=== PATIENT | female | born 1975 | race Caucasian/White ===

== ENCOUNTER 2016-09-06 19:50 | Observation (INO) | payer OTHER ==
[2016-09-06 20:24] VITALS: BP 127/86; PULSE 82; RESP 16; TEMP 98.2; O2SAT 99
[2016-09-06] MEDS ORDERED: Sodium Chloride 0.9% 1,000 ML IV STA (21:57)
--- NOTE | 2016-09-06 22:07 | ED PDOC ---
HPI: Abdomen Time Seen by Provider: 09/06/16 21:22 Chief Complaint (Nursing): Abdominal Pain Chief Complaint (Provider): Lower abdominal pain History Per: Patient History/Exam Limitations: no limitations Onset/Duration Of Symptoms: Days (1) Outside of [place] travel?: No Current Symptoms Are (Timing): Still Present Location Of Pain/Discomfort: Suprapubic Quality Of Discomfort: "Pain" Additional Complaint(s): The patient is a 41yo female, no pertinent past medical history, presents to the ED for evaluation of low abdominal pain with associated vaginal bleeding described as bright red blood with clots. Patient reports she has changed her pads "more times than she can count." She reports her presentation is unusual because her periods are regular. Patient also reports an episode of nausea, vomiting, diarrhea today with resolution of vomiting and diarrhea. Patient denies any lightheadedness, dizziness, fever, chills and offers no additional medical complaints. Abnormal Vaginal Bleeding: Yes Past Medical History Reviewed: Historical Data, Nursing Documentation, Vital Signs Vital Signs: Last Vital Signs Temp 98.2 F 09/06/16 20:21 Pulse 82 09/06/16 20:21 Resp 16 09/06/16 20:21 BP 127/86 09/06/16 20:21 Pulse Ox 99 09/07/16 01:34 - Medical History PMH: Anemia - Surgical History Surgical History: No Surg Hx - Family History Family History: States: No Known Family Hx, Unknown Family Hx - Home Medications Home Medications: Ambulatory Orders Medication Instructions Recorded Ferrous Sulfate 325 mg PO DAILY #14 tablet 09/07/16 Ketorolac Tromethamine [Toradol] 10 mg PO Q6 #30 tab 09/07/16 medroxyPROGESTERONEone Acetate 5 mg PO DAILY #5 tab 09/07/16 [Provera] - Allergies Allergies/Adverse Reactions: Allergies Allergy/AdvReac Type Severity Reaction Status Date / Time No Known Allergies Allergy Verified 05/20/14 01:27 Review of Systems ROS Statement: Except As Marked, All Systems Reviewed And Found Negative Constitutional: Negative for: Fever, Chills Cardiovascular: Negative for: Light Headedness Gastrointestinal: Positive for: Nausea, Abdominal Pain (lower abdominal pain) Genitourinary Female: Positive for: Vaginal Bleeding Neurological: Negative for: Dizziness Physical Exam - Reviewed Nursing Documentation Reviewed: Yes Vital Signs Reviewed: Yes - Physical Exam Appears: Positive for: Well, Non-toxic, No Acute Distress Head Exam: Positive for: ATRAUMATIC, NORMAL INSPECTION, NORMOCEPHALIC Skin: Positive for: Normal Color, Warm, DRY Eye Exam: Positive for: Normal appearance Neck: Positive for: Normal, Supple Cardiovascular/Chest: Positive for: Regular Rate, Rhythm Respiratory: Positive for: Normal Breath Sounds. Negative for: Respiratory Distress Gastrointestinal/Abdominal: Positive for: Soft, Tenderness (lower abdomen tenderness) Pelvic Exam: Positive for: Blood (mild pooling of blood around cervix), Other ( Compliance Aide: Makenzie العراقي RN). Negative for: Tender W/Cervical Motion Back: Positive for: Normal Inspection Extremity: Positive for: Normal ROM. Negative for: Deformity, Swelling Neurologic/Psych: Positive for: Alert, Oriented - Laboratory Results Result Diagrams: 09/06/16 23:55 09/06/16 22:14 - ECG O2 Sat by Pulse Oximetry: 99 (RA) Pulse Ox Interpretation: Normal Medical Decision Making Medical Decision Making: Time: 2129 Impression: Dysfunctional uterine bleeding Plan: -- Labs -- Toradol 15mg IVP -- IV Fluids -- Zofran 4mg IVP -- US Transvaginal Reassess Scribe Attestation: Documented by April Cleaning acting as a scribe for Reji Medina MD. Provider Attestation: All medical record entries made by the Scribe were at my direction and personally dictated by me. I have reviewed the chart and agree that the record accurately reflects my personal performance of the history, physical exam, medical decision making, and the department course for this patient. I have also personally directed, reviewed, and agree with the discharge instructions and disposition. ED OBSERVATION Date of observation admission: 09/06/16 Time of observation admission: 21:58 - Observation admission statement Patient is being placed in observation because:: Pending CT - Goals of Observation Goals of observation are:: CT results and final disposition - Progress Note Progress Note: 09/06/16 23:40 US TRANSVAGINAL FINDINGS Uterus/cervix: Uterus measures 10.8 x 7.2 x 8.2 cm in size. 6.7 x 5.5 x 7.5 cm uterine mass. Endometrium: 1.9 cm in thickness. Right ovary: 2.4 x 2.0 x 2.1 cm in size. No mass. Small follicles. Normal flow. Left ovary: 2.3 x 1.6 x 2.0 cm in size. No mass. Small follicles. Normal flow. Free fluid: No significant free fluid. Bladder: Unremarkable as visualized. IMPRESSION: 1. Probable fibroid. 2. Thickened endometrium. Clinical correlation is needed. 3. Incidental/non-acute findings are described above. 09/07/16 01:31 Upon re-evaluation, patient is feeling better and is medically stable to be discharged home. Discussed case with Dr. Bernard, who notes that patient will most likely need an endometrial biopsy and iron. Patient can take Provera, but resulting caveat is that it may change the results of the endometrial biopsy. Spoke with patient regarding results, and she is aware that she must see her ACCESS DIRECTOR tomorrow and is aware of the effect Provera may have on the biopsy. Return precautions given. Disposition - Clinical Impression Clinical Impression: Fibroid, Thickened endometrium, Vaginal bleeding - Disposition Disposition: Routine/Home Disposition Time: 21:58 Condition: FAIR - Pt Status Changed To: Hospital Disposition Of: Observation
[2016-09-06 22:17] LABS: BASO # 0.1 K/uL (0.0-0.2); BASO % 1.2 % (0.0-2.0); EOS # 0.1 K/uL (0.0-0.7); EOS % 1.3 % (0.0-4.0); HEMOGLOBIN 10.4 g/dL (12.0-16.0); LYMPH # 1.5 K/uL (1.0-4.3); LYMPH % 29.5 % (20.0-40.0); MEAN CELL VOLUME 83.5 fl (81.0-99.0); MEAN CORPUSCULAR HEMOGLOBIN 26.5 pg (27.0-31.0); MEAN CORPUSCULAR HGB CONC 31.8 g/dL (33.0-37.0); MEAN PLATELET VOLUME 7.4 fl (7.2-11.7); MONO # 0.4 K/uL (0.0-0.8); MONO % 8.3 % (0.0-10.0); NEUT % 59.7 % (50.0-75.0); RBC 3.93 Mil/uL (3.80-5.20); RED CELL DISTRIBUTION WIDTH 15.4 % (11.5-14.5)
[2016-09-06 22:25] LABS: ALB/GLOB RATIO 1.4 (1.0-2.1); ALBUMIN 4.2 g/dL (3.5-5.0); ALT/SGPT 33 U/L (9-52); AST/SGOT 24 U/L (14-36); BLOOD UREA NITROGEN 15 mg/dl (7-17); CALCIUM 9.1 mg/dL (8.4-10.2); GFR AFRICAN-AMERICAN > 60; GFR NON-AFRICAN AMERICAN > 60
[2016-09-06 22:30] LABS: URINE BACTERIA MOD (<OCC); URINE BILIRUBIN NEGATIVE (NEGATIVE); URINE BLOOD LARGE (NEGATIVE); URINE CLARITY CLOUDY (Clear); URINE GLUCOSE (UA) NEG (Normal); URINE LEUKOCYTE ESTERASE NEG Leu/uL (Negative); URINE NITRATE NEGATIVE (NEGATIVE); URINE PROTEIN 30 mg/dL (NEGATIVE); URINE UROBILINOGEN 0.2-1.0 mg/dL (0.2-1.0)
[2016-09-06 22:31] LABS: URINE COLOR RED (YELLOW)
--- NOTE | 2016-09-06 23:44 | US ---
EXAM: US Pelvis Complete, Transabdominal CLINICAL HISTORY: 41 years old, female; Signs and symptoms; Menstruation abnormalities; Excessive menstruation; With irregular cycle; Additional info: Vb w/ lower abd pain TECHNIQUE: Real-time transabdominal pelvic ultrasound (complete) with image documentation. COMPARISON: No relevant prior studies available. FINDINGS: Uterus/cervix: Uterus measures 10.8 x 7.2 x 8.2 cm in size. 6.7 x 5.5 x 7.5 cm uterine mass. Endometrium: 1.9 cm in thickness. Right ovary: 2.4 x 2.0 x 2.1 cm in size. No mass. Small follicles. Normal flow. Left ovary: 2.3 x 1.6 x 2.0 cm in size. No mass. Small follicles. Normal flow. Free fluid: No significant free fluid. Bladder: Unremarkable as visualized. IMPRESSION: 1. Probable fibroid. 2. Thickened endometrium. Clinical correlation is needed. 3. Incidental/non-acute findings are described above. EXAM: US Pelvis, Transvaginal CLINICAL HISTORY: 41 years old, female; Signs and symptoms; Menstruation abnormalities; Excessive menstruation; With irregular cycle; Additional info: Vb w/ lower abd pain TECHNIQUE: Real-time transvaginal pelvic ultrasound (complete) with image documentation. Transvaginal imaging was used for better evaluation of the endometrium and adnexa. COMPARISON: No relevant prior studies available. FINDINGS: Uterus/cervix: Uterus measures 10.8 x 7.2 x 8.2 cm in size. 6.7 x 5.5 x 7.5 cm uterine mass. Endometrium: 1.9 cm in thickness. Right ovary: 2.4 x 2.0 x 2.1 cm in size. No mass. Small follicles. Normal flow. Left ovary: 2.3 x 1.6 x 2.0 cm in size. No mass. Small follicles. Normal flow. Free fluid: No significant free fluid. Bladder: Empty bladder which cannot be evaluated with this probe.
[2016-09-07 00:48] LABS: BASO % 0.7 % (0.0-2.0); EOS # 0.1 K/uL (0.0-0.7); EOS % 1.2 % (0.0-4.0); HEMOGLOBIN 9.2 g/dL (12.0-16.0); LYMPH # 1.5 K/uL (1.0-4.3); MEAN CELL VOLUME 83.8 fl (81.0-99.0); MEAN CORPUSCULAR HEMOGLOBIN 26.7 pg (27.0-31.0); MEAN CORPUSCULAR HGB CONC 31.9 g/dL (33.0-37.0); MEAN PLATELET VOLUME 8.3 fl (7.2-11.7); MONO # 0.5 K/uL (0.0-0.8); MONO % 10.4 % (0.0-10.0); NEUT # 2.9 K/uL (1.8-7.0); NEUT % 58.7 % (50.0-75.0); RBC 3.43 Mil/uL (3.80-5.20); RED CELL DISTRIBUTION WIDTH 15.1 % (11.5-14.5)
== END 2016-09-07 01:28 | disposition home or self-care (01) ==
LOC: H.ER 19:50 → H.EROBSV 21:58
PROVIDERS: ADMIT Emergency Medicine; ATTEND Emergency Medicine
DX: N93.8 Other specified abnormal uterine and vaginal bleeding (principal); D64.9 Anemia, unspecified; R93.8 Abnormal findings on diagnostic imaging of other specified body structures; D21.9 Benign neoplasm of connective and other soft tissue, unspecified